=== PATIENT | female | born 1980 | race Caucasian/White ===

== ENCOUNTER → 2020-09-08 | Outpatient (CLI) | payer OTHER ==
--- NOTE | 2020-09-08 16:49 | KCIC ---
Examination: MRI of the right knee HISTORY: History of right knee swelling COMPARISON: None available Technique: Multiplanar, multisequence MR imaging of the right knee was performed without contrast. FINDINGS: The anterior cruciate ligament, posterior cruciate ligament appears intact. There is horizontal increased signal identified in the body of the meniscus likely degenerative tear. The lateral meniscus appears intact. The medial collateral ligament, lateral collateral ligamentous complex including the fibular collateral ligament, biceps femoris tendon, popliteus tendon appears intact. The extensor mechanism is intact. The medial, lateral retinaculum appears intact. There is 4.5 cm fluid collection identified in the prepatellar soft tissue anterior to the patella likely bursal fluid. Mild joint space loss identified in the medial, lateral, patellofemoral compartments. Small popliteal cyst. IMPRESSION: 1. Degenerative horizontal tear medial meniscus. 2. A 4.5 cm fluid collection identified in the prepatellar soft tissue anterior to the patella likely bursal fluid. 3. Small popliteal cyst. Electronically signed by: Eleazar Jones MD (09/08/2020 4:47 PM) [id number]
== END ==
LOC: KCIC MRI 15:08
PROVIDERS: ATTEND Family Medicine
DX: S83.241A Other tear of medial meniscus, current injury, right knee, initial encounter (principal); M71.21 Synovial cyst of popliteal space [Baker], right knee; R22.41 Localized swelling, mass and lump, right lower limb; X58.XXXA Exposure to other specified factors, initial encounter; Y93.89 Activity, other specified; Y92.89 Other specified places as the place of occurrence of the external cause; Y99.8 Other external cause status
CPT/HCPCS: 73721

== ENCOUNTER → 2022-02-07 | Outpatient (CLI) | payer OTHER ==
--- NOTE | 2022-02-07 10:37 | RAD ---
BILATERAL DIAGNOSTIC 3-D MAMMOGRAPHY AND RIGHT BREAST ULTRASOUND History: Lateral right breast pain x2 weeks, now improved. Comparison: None. This is a baseline examination. Technique: Routine MLO and CC tomosynthesis (3D) digital views performed. Images reviewed by the radi ologist at dedicated workstation. Findings: Breast Tissue Density C : The breasts are heterogeneously dense, which may obscure small masses. There are no dominant masses, suspicious microcalcifications or architectural distortion. Real-time ultrasound imaging of the right breast area of pain is performed. 8:00 to 10:00 position is at the area of pain. A dense ridge of tissue is seen at the 9:00 position. No solid mass or architectural distortion or abnormal shadowing is identified. There is a benign lymp h node in the low axilla. IMPRESSION: No mammographic evidence of malignancy. Right breast ultrasound in the area of pain is normal. Recomm end routine mammogram screening. BI-RADS category 2: Benign findings. The images were reviewed with computer-aided detection. Patient information is entered into the reminder system with a target due date for the next screening mammogram. Mammography is the most sensitive method for finding small breast cancers, but it does not detect the m all and is not a substitute for careful clinical examination. A negative mammogram does not negate a clinically suspicious finding and should not result in delay in biopsying a clinically suspicious a bnormality. "Our facility is accredited by the [employer] Mammography Program." Electronically signed by: Surendra Shahid MD (02/07/2022 10:35 AM) [id number]
== END ==
LOC: MAMMO 09:22
PROVIDERS: ATTEND Family Medicine
DX: R92.8 Other abnormal and inconclusive findings on diagnostic imaging of breast (principal); N64.4 Mastodynia
CPT/HCPCS: 76641; 77066; G0279; 77062